=== PATIENT | female | born 1945 | race Caucasian/White ===

== ENCOUNTER → 2018-05-01 | Outpatient (CLI) | payer OTHER, BC | LOC: FIMAGING 08:44 | PROVIDERS: ATTEND Internal Medicine | DX: R92.8 Other abnormal and inconclusive findings on diagnostic imaging of breast (principal) ==

== ENCOUNTER → 2018-05-08 | Outpatient (CLI) | payer OTHER, BC | LOC: BMCIMAGING 11:16 | PROVIDERS: ATTEND Orthopaedic Surgery Hand Surgery | DX: M25.812 Other specified joint disorders, left shoulder (principal) ==